=== PATIENT | female | born 1970 | race Caucasian/White ===

== ENCOUNTER 2019-09-23 06:50 | Day surgery (SDC) | payer OTHER ==
[~2019-09-23] VITALS: Ht 160 cm; Wt 65.9 kg
[~2019-09-23 06:50] MED LIST: RINGERS SOLUTION,LACTATED 1,000 ML IV ONE
[2019-09-23] MEDS ORDERED: DEXAMETHASONE SOD PHOS 4 MG/ML VIAL IVP ONE (06:51)
[2019-09-23] MEDS ORDERED: 0.9% SODIUM CHLORIDE 10 ML VIAL IVP ONE (06:51)
[2019-09-23] MEDS ORDERED: PROPOFOL 1% 20 ML VIAL IVP ONE (06:51)
[2019-09-23] MEDS ORDERED: LIDOCAINE/PF 2% 5 ML VIAL IM ONE (06:51)
[2019-09-23] MEDS ORDERED: KETOROLAC TROMETHAMINE 60 MG/2 ML VIAL IM ONE (06:51)
[2019-09-23] MEDS ORDERED: FentaNYL CITRATE-PF 100 MCG/2 ML VIAL IVP ONE (06:51)
[2019-09-23] MEDS ORDERED: MIDAZOLAM HCL 2 MG/2 ML VIAL IVP ONE (06:51)
[2019-09-23] MEDS ORDERED: ONDANSETRON HCL 4 MG/2 ML VIAL IVP ONE (06:51)
[2019-09-23] MEDS ORDERED: SODIUM CHLORIDE 0.9% 50 ML ONE (06:54)
[2019-09-23] MEDS ORDERED: VASOPRESSIN 20 UNITS/ML VIAL ONE (06:54)
[2019-09-23] MEDS ORDERED: SILVER NITRATE APPLICATOR 1 EA STICK TP ONE (06:54)
[2019-09-23] MEDS ORDERED: POTASSIUM IODIDE 5%/IODINE 10% SOLUTION 14 ML TP ONE (07:00)
[2019-09-23] MEDS ORDERED: FERRIC SUBSULFATE SOLUTION 8 ML BOTTLE TP ONE (07:00)
[2019-09-23 07:39] LABS: EOSINOPHILS % (AUTO) 6.4 % (1.0-6.0); HEMATOCRIT 41.1 % (36-46); HEMOGLOBIN 13.8 g/dL (12.0-16.0); LYMPHOCYTES # (AUTO) 1.4 K/uL (1.0-4.8); LYMPHOCYTES % (AUTO) 25.4 % (22.0-44.0); MEAN CORPUSCULAR HEMOGLOBIN 27.9 pg (26.0-34.0); MEAN CORPUSCULAR HGB CONC 33.5 G/dL (31.0-37.0); MEAN CORPUSCULAR VOLUME 83 fL (80-100); MONOCYTES # (AUTO) 0.5 K/uL (0.1-1.0); MONOCYTES % (AUTO) 9.7 % (2.0-9.0); NEUTROPHILS # (AUTO) 3.1 K/uL (1.8-7.7); NEUTROPHILS % (AUTO) 57.5 % (40.0-70.0); PLATELET COUNT (AUTO) 267 K/uL (150-450); RED BLOOD CELL COUNT(AUTO) 4.94 MIL/uL (4.00-5.20); RED CELL DISTRIBUTION WIDTH 15.4 % (11.5-14.5)
[2019-09-23 07:46] LABS: ANION GAP 6 mmol/L (8-16); CALCIUM, TOTAL 8.6 mg/dL (8.8-10.5); CARBON DIOXIDE 30 mmol/L (22-29); CHLORIDE 102 mmol/L (98-107); CREATININE 0.74 mg/dL (0.60-1.30); GLOMERULAR FILTR. RATE CALC > 60 mL/min (>60); GLUCOSE,RANDOM 89 mg/dL (70-110); POTASSIUM 3.7 mmol/L (3.5-5.1); SODIUM SERUM 138 mmol/L (136-145); UREA NITROGEN, BLOOD 12 mg/dL (7-18)
[2019-09-23 07:52] LABS: ALANINE AMINOTRANSFERASE 17 U/L (12-78); ALBUMIN 3.8 g/dL (3.4-5.0); ALKALINE PHOSPHATASE 69 U/L (46-116); ASPARTATE AMINOTRANSFERASE 16 U/L (15-37); BILIRUBIN,TOTAL 0.7 mg/dL (0.1-1.0); INR 1.1 (0.9-1.1); PROTHROMBIN TIME 10.7 SEC (9.4-11.6); TOTAL PROTEIN, SERUM 7.9 g/dL (6.4-8.2)
[2019-09-23] MEDS ORDERED: HYDROmorphone 2 MG/ML SYRINGE IVP PRN (09:00)
[2019-09-23] MEDS ORDERED: MEPERIDINE-PF 25 MG/ML VIAL IVP PRN (09:00)
[2019-09-23] MEDS ORDERED: FentaNYL CITRATE-PF 100 MCG/2 ML VIAL IVP PRN (09:00)
[2019-09-23] MEDS ORDERED: RINGERS SOLUTION,LACTATED 1,000 ML IV ONE (09:15)
[2019-09-23] MEDS ORDERED: GLYCOPYRROLATE 0.2 MG/ML VIAL ONE (09:50)
[2019-09-23] MEDS ORDERED: GLYCOPYRROLATE 0.2 MG/ML VIAL IVP ONE (10:00)
[2019-09-23] MEDS ORDERED: OXYGEN THERAPY IH SCH (20:00)
== END 2019-09-23 11:15 | disposition home or self-care (01) ==
LOC: SURGERY 06:50
PROVIDERS: ATTEND Obstetrics & Gynecology
DX: N87.1 Moderate cervical dysplasia (principal); N72 Inflammatory disease of cervix uteri; Z79.01 Long term (current) use of anticoagulants; Z79.899 Other long term (current) drug therapy
CPT/HCPCS: 36415; 57522; 80053; 84703; 85025; 85610; 85730; 93005; J0690; J1100; J1885; J2250; J2405; J2704; J3010; J3490 ×3; J7050; J7120; 88305; 88307; 88341; 88342